=== PATIENT | male | born 1970 | race Caucasian/White ===

== ENCOUNTER 2021-12-18 19:21 | Emergency (ER) | payer BC ==
[~2021-12-18] VITALS: Ht 193 cm; Wt 108.8 kg
[~2021-12-18 19:21] MED LIST: SULF1TAB23 PO
--- NOTE | 2021-12-18 20:05 | Diagnostic Imaging Report ---
EXAM: FOOT, LEFT, 3 VIEWS INDICATION: Left foot trauma and pain. COMPARISON: None. FINDINGS: Hallux valgus. Moderate degenerative changes in the left 1st MTP joint. Comminuted mildly displaced fracture of the distal left 2nd phalangeal tuft. No other fractures. No radiopaque foreign bodies. IMPRESSION: Acute appearing fracture of the tuft of the left 2nd distal phalanx. Dictated by: Dictated on workstation # [id number]
[2021-12-18] MEDS ORDERED: CEPHALEXIN 250 MG (KEFLEX) CAP PO ONE (20:15)
[2021-12-18] MEDS ORDERED: BUPIVACAINE 0.25% 30 ML (SENSORCAINE) VIAL INJ ONE (20:15)
--- NOTE | 2021-12-18 20:17 | ED Lower Extremity ---
General Chief Complaint: Lower Extremity Stated Complaint: L FOOT SECOND TOE INJ Source: patient Exam Limitations: no limitations History of Present Illness Date Seen by Provider: Dec 18, 2021 Time Seen by Provider: 20:03 Initial Comments This is a well-appearing 51-year-old male who presented to the ER with complaints of smashed second toe on his left foot. States that he was lifting tires and attempted to throw onto the back of his truck when it messed and came back down and smashed his foot. Has a history of hammertoe on his second left foot and has been seeing Dr. Jackson with podiatry for discussion of possible amputation vs reconstruction. States he has follow-up with Dr. Jackson regarding this toe in 2 days. At this time he is resting comfortably and denies need for any additional pain management. No additional injuries reported. Allergies and Home Medications Allergies Coded Allergies: No Known Drug Allergies (Unverified Allergy, Mild, 11/25/08) Patient Home Medication List Home Medication List Reviewed: Yes Cephalexin (Cephalexin) 500 Mg Tablet, 500 MG PO TID Prescribed by: ANGELA YOUNG on 12/18/212039 Hydrocodone/Acetaminophen (Hydrocodone-Acetamin 5-325 mg) 5 Mg-325 Mg Tablet, 1 TAB PO Q4H PRN for PAIN-MODERATE (5-7) Prescribed by: ANGELA YOUNG on 12/18/212037 Sulfamethoxazole/Trimethoprim (Bactrim 400-80 Mg Tablet) 1 Tab Tablet, 1 TAB PO BID Prescribed by: EDEN MIKE on 11/25/08 174 Review of Systems Constitutional: no symptoms reported EENTM: no symptoms reported Respiratory: no symptoms reported Cardiovascular: no symptoms reported Physical Exam Vital Signs Vital Signs - First Documented 12/18/21 19:37 Temp 36.8 Pulse 91 Resp 18 B/P (MAP) 139/96 (110) Pulse Ox 96 O2 Delivery Room Air Capillary Refill : Height, Weight, BMI Height: '" Weight: lbs. oz. kg; BMI Method: General Appearance: WD/WN, no apparent distress HEENT: PERRL/EOMI, normal ENT inspection Neck: full range of motion, normal inspection Cardiovascular: regular rate, rhythm, no murmur Respiratory: lungs clear, normal breath sounds Knees: bilateral knee non-tender, bilateral knee normal inspection, bilateral knee normal range of motion Ankles: bilateral ankle non-tender, bilateral ankle normal inspection, bilateral ankle normal range of motion, bilateral ankle no evidence of injury Feet: right foot non-tender, right foot normal inspection, right foot normal range of motion, right foot no evidence of injury; left foot other ( Has significant swelling, bruising and ecchymosis at the distal portion of his left second toe. Has superficial abrasions with no lacerations. No cap refill at distal tip.) Neurologic/Tendon: normal sensation Neurologic/Psychiatric: no motor/sensory deficits, alert, normal mood/affect, oriented x 3 Skin: normal color, warm/dry Progress/Results/Core Measures Results/Orders My Orders Orders - ANGELA YOUNG APRN Foot, Left, 3 Views (12/18/21 19:41) Bupivacaine 0.25% 30 Ml Inj (Sensorcaine (12/18/21 20:15) Cephalexin Capsule (Keflex Capsule) (12/18/21 20:15) Bupivacaine 0.5% Injection (Sensorcaine (12/18/21 20:28) Hydrocodone/Apap 5/325 Tablet (Lortab 5 (12/18/21 20:45) Rx-Hydrocodone/Apap 5-325 Mg (Rx-Vicodin (12/18/21 20:45) Medications Given in ED Current Medications Medications Dose Ordered Sig/Padma Route Start Time Stop Time Status Last Admin Dose Admin Acetaminophen/ Hydrocodone Bitart 1 ea ONCE ONCE PO 12/18/21 20:45 12/18/21 20:46 DC 12/18/21 20:45 1 EA Acetaminophen/ Hydrocodone Bitart 1 ea Q4H PRN PO 12/18/21 20:45 12/18/21 21:26 DC 12/18/21 21:09 1 EA Bupivacaine HCl 30 ml ONCE ONCE INJ 12/18/21 20:15 12/18/21 20:16 DC 12/18/21 20:47 30 ML Cephalexin HCl 500 mg ONCE ONCE PO 12/18/21 20:15 12/18/21 20:16 DC 12/18/21 20:45 500 MG Vital Signs/I&O 12/18/21 19:37 Temp 36.8 Pulse 91 Resp 18 B/P (MAP) 139/96 (110) Pulse Ox 96 O2 Delivery Room Air Progress Progress Note : Progress Note Patient examined and he is in no acute distress. Reports only mild discomfort at this time. Images obtained reveal an acute fracture of the distal tuft portion of his left second toe. This is the hammer toe that he has been discussing with Dr. Jackson about possible amputation versus reconstruction. States he has has follow-up with him on for further discussion. However, I would like him to go ahead and reach out to Dr. Jackson's office tomorrow to see if he would like to see him sooner as he does have poor vascularization at the distal portion of his toe after his injury. Discussed that he will likely have to have amputation of this digit due to his traumatic injury. States he is okay with this as this is what he was leaning towards anyway. Went ahead cleansed site with Iodine swab and performed a digital block with 0.5% bupivacaine w/o epi, injected total of 2 cc. Achieved good anesthetization. Was able to cleanse his toe with saline and chlorhexidine wash comfortably. Applied bulky dressing. He will call Dr. Jackson first thing in the morning. Patient given Keflex and hydrocodone in the emergency department we will go ahead and prescribe outpatient antibiotics as well as some medication for pain management. Discharge plan of care reviewed with patient and he is agreeable with plan. Diagnostic Imaging Diagonstic Imaging: Xray Comments [facility], [place] NAME: RADHA LOPEZ [facility] REC#: [id number] PT STATUS: REG ER : 1970 PHYSICIAN: ANGELA YOUNG NIGHT STOCKER ADMIT DATE: 12/18/21/ER Signed Date of Exam:12/18/21 FOOT, LEFT, 3 VIEWS EXAM: FOOT, LEFT, 3 VIEWS INDICATION: Left foot trauma and pain. COMPARISON: None. FINDINGS: Hallux valgus. Moderate degenerative changes in the left 1st MTP joint. Comminuted mildly displaced fracture of the distal left 2nd phalangeal tuft. No other fractures. No radiopaque foreign bodies. IMPRESSION: Acute appearing fracture of the tuft of the left 2nd distal phalanx. Dictated by: Dictated on workstation # [id number] Dict: 12/18/212000 Trans: 12/18/212006 LINDEN [id number] Interpreted by: BENY MOONEY MD Electronically signed by: BENY MOONEY MD 12/18/212006 Departure Impression Primary Impression: DISP FX OF DISTAL PHALANX OF UNSP LESSER TOE(S), INIT Disposition: 01 HOME, SELF-CARE Condition: Improved Departure-Patient Inst. Decision time for Depature: 20:36 Referrals: NO,LOCAL PHYSICIAN (PCP/Family) Primary Care Physician Patient Instructions: Toe Fracture (DC) Add. Discharge Instructions: Plan: 1. Call Dr. Jackson first thing in the morning to see if he would like to reschedule your appointment from to tomorrow. 2. May take Hydrocodone 5/325mg by mouth every 4 hours as needed for pain. 3. Cephalexin 500mg by mouth three times a day, this is your antibiotic, take as directed and complete full course. 4. Return for any new, concerning, or worsening symptoms. All discharge instructions reviewed with patient and/or family. Voiced understanding. Scripts Cephalexin (Cephalexin) 500 Mg Tablet 500 MG PO TID, #15 TAB 0 Refills Prov: ANGELA YOUNG NIGHT STOCKER 12/18/21 Hydrocodone/Acetaminophen (Hydrocodone-Acetamin 5-325 mg) 5 Mg-325 Mg Tablet 1 TAB PO Q4H PRN for PAIN-MODERATE (5-7), #14 TAB 0 Refills Prov: ANGELA YOUNG NIGHT STOCKER 12/18/21 Copy Copies To 1: HARRIETT JACKSON M ANGELA YOUNG NIGHT STOCKER Dec 18, 2021 20:17
[2021-12-18] MEDS ORDERED: BUPIVACAINE 0.5% 30 ML (SENSORCAINE) VIAL ONE (20:28)
[2021-12-18] MEDS ORDERED: ACHD5005 PO (20:38)
[2021-12-18] MEDS ORDERED: CEPH500T PO (20:40)
[2021-12-18] MEDS ORDERED: HYDROcodone/APAP 5 MG/325 MG (LORTAB) TAB PO ONE (20:45)
[2021-12-18 21:21] VITALS: BP 138/86
== END 2021-12-18 21:26 | disposition home or self-care (01) ==
LOC: EDUNIT# 19:21 → ER 19:23
DX: S92.532A Displaced fracture of distal phalanx of left lesser toe(s), initial encounter for closed fracture (principal); W23.0XXA Caught, crushed, jammed, or pinched between moving objects, initial encounter
CPT/HCPCS: 73630

== ENCOUNTER 2021-12-21 05:33 | Outpatient (CLI) | payer BC ==
[~2021-12-21] VITALS: Ht 193 cm; Wt 109.0 kg
[~2021-12-21 05:33] MED LIST changes: +ACHD5005 PO; +CEPH500T PO
== END 2021-12-25 11:55 | disposition home or self-care (01) ==
LOC: PREOP 05:33
PROVIDERS: ATTEND Podiatrist Foot & Ankle Surgery
DX: Z01.818 Encounter for other preprocedural examination (principal)

== ENCOUNTER 2021-12-28 12:59 | Day surgery (SDC) | payer BC ==
[2021-12-28] VITALS (8 sets, daily range): BP systolic 126–147; BP diastolic 79–89
[~2021-12-28] VITALS: Ht 193 cm; Wt 109.0 kg
[2021-12-28] MEDS ORDERED: ceFAZolin INJECTION 1,000 MG ONE (13:48)
--- NOTE | 2021-12-28 13:48 | Physical Therapy Ortho Eval ---
PT Orthopedic Evaluation Type of Surgery left second toe amputation Prior Level of Function Current Living Status: Alone Locomotion (Upon Admit): Independent Established Durable Medical Eq: Standard Walker, Crutches Subjective Subjective Patient reports he has used crutches before and agrees to PT for preop education/evaluation Entry Into Home: Stairs With Railing Steps Into Home: 3 Other Obstacles: patient performed 3 steps SBA Motor Control Motor Control: Motor Control WNL ROM ROM: WFL, except focal deficit Strength Strength: WFL Transfer SCALE: Activities may be completed with or without assistive devices. 3-Eeajcuqgvt-cwzubva completes the activity by him/herself with no assistance from a helper. 5-Set-up or Clean-up Assistance-helper sets up or cleans up; patient completes activity. [place] assists only prior to or following the activity. 4-Supervision or Touching Assistance-helper provides verbal cues and/or touching/steadying and/or contact guard assistance as patient completes activity. Assistance may be provided throughout the activity or intermittently. 3-Partial/Moderate Assistance-helper does LESS THAN HALF the effort. [place] lifts, holds or supports trunk or limbs, but provides less than half the effort. 2-Substantial/Maximal Assistance-helper does MORE THAN HALF the effort. [place] lifts or holds trunk or limbs and provides more than half the effort. 1-Xbdrhdyig-vqbldt does ALL the effort. Patient does none of the effort to complete the activity. Or, the assistance of 2 or more helpers is required for the patient to complete the activity. If activity was not attempted, code reason: 7-Patient Refused. 9-Not Applicable-not attempted and the patient did not perform the activity before the current illness, exacerbation or injury. 10-Not Attempted due to Environmental Limitations-(lack of equipment, weather restraints, etc.). 88-Not Attempted due to Medical Conditions or Safety Concerns. Transfers (B, C, W/C) (QC): 6 Gait Gait Assistive Device: Crutches Weight Bearing Status RLE: Full Weight Bearing Left Lower Extremity: Left Weight Bearing Status LLE: Non Weight Bearing Gait (QC): 4 (SBA) Distance (QC): 3=150 ft Distance: 150' Gait Level of Assist: 4 Treatment Rendered Treatment: Gait Train, Step Train Assessment/Goals Goal Time Frame: 1 Visit Safe Ambulation: Yes Plan Treatment Plan: Discharge Treatment Duration: eval only PT/Family Agrees to Plan: Yes Time Time In: 1312 Time Out: 1325 Total Billed Treatment Time: 13 Billed Treatment Time 1 visit EVModC 13 min GINNY ALLEN PT Dec 28, 2021 13:48
[2021-12-28] MEDS ORDERED: LIDOCAINE 1% INJ 20 ML VIAL ONE (13:59)
[2021-12-28] MEDS ORDERED: BUPIVACAINE 0.5% 30 ML (SENSORCAINE) VIAL ONE (13:59)
[2021-12-28] MEDS ORDERED: ceFAZolin 2 GM IV Premixed 50 ML IV ONE (14:00)
[2021-12-28] MEDS ORDERED: LACTATED RINGERS 1,000 ML IV PRN (14:00)
[2021-12-28] MEDS ORDERED: MIDAZOLAM 2 MG/2 ML (VERSED) VIAL ONE (14:36)
[2021-12-28] MEDS ORDERED: fentaNYL INJ 100 MCG/2 ML AMP ONE (14:36)
[2021-12-28] MEDS ORDERED: proPOfol 200 MG/20 ML (DIPRIVAN) VIAL IV ONE (15:04)
[2021-12-28] MEDS ORDERED: ONDANSETRON 4 MG/2 ML (SDV) Z0FRAN ONE (15:04)
[2021-12-28] MEDS ORDERED: LIDOCAINE PF 2% 5 ML (XYLOCAINE) VIAL ONE (15:04)
--- NOTE | 2021-12-28 15:07 | Progress Note-Pre Operative ---
Pre-Operative Progress Note H&P Reviewed The H&P was reviewed, patient examined and no changes noted. Date Seen by Provider: Dec 28, 2021 Time Seen by Provider: 15:06 Date H&P Reviewed: Dec 28, 2021 Time H&P Reviewed: 15:06 Pre-Operative Diagnosis: Hammertoe, right 2nd HARRIETT MENDOZA DPM Dec 28, 2021 15:07
[2021-12-28] MEDS ORDERED: SEVOFLURANE (ULTANE) 15 ML INHAL SOLN ONE ×2 (15:37→15:38)
--- NOTE | 2021-12-28 15:55 | Progress Note-Post Operative ---
Post-Operative Progess Note Surgeon (s)/Manager Publishing (s) Surgeon HARRIETT MENDOZA DPM Manager Publishing: none Pre-Operative Diagnosis Hammertoe, right 2nd Post-Operative Diagnosis same, plus fracture Procedure & Operative Findings Date of Procedure 12/28/21 Procedure Performed/Findings amputation of the left 2nd toe Anesthesia Type General Estimated Blood Loss Estimated blood loss (mL): Minimal Specimens/Packing Specimens Removed left 2nd toe HARRIETT MENDOZA DPM Dec 28, 2021 15:55
[2021-12-28] MEDS ORDERED: LACTATED RINGERS 1,000 ML IV SCH (16:00)
[2021-12-28] MEDS ORDERED: HYDROcodone/APAP 5 MG/325 MG (LORTAB) TAB PO PRN (16:00)
[2021-12-28] MEDS ORDERED: ACHD5005 PO (16:13)
--- NOTE | 2021-12-28 16:14 | Anesthesia-General Post-Op ---
General Patient Condition Mental Status/LOC: Same as Preop Cardiovascular: Satisfactory Nausea/Vomiting: Absent Respiratory: Satisfactory Pain: Controlled Complications: Absent Post Op Complications Complications None Follow Up Care/Instructions Patient Instructions None needed. Anesthesia/Patient Condition Patient Condition Patient is doing well, no complaints, stable vital signs, no apparent adverse anesthesia problems. No complications reported per nursing. GIULIANA CHILD CRNA Dec 28, 2021 16:14
[2021-12-28] MEDS ORDERED: morphine INJ 10 MG/ML 1ML (SYR OR VIAL) IVP ONE (16:15)
[2021-12-28] MEDS ORDERED: ONDANSETRON 4 MG/2 ML (SDV) Z0FRAN IVP PRN (16:15)
--- NOTE | 2021-12-29 01:20 | OPERATIVE REPORT ---
DATE OF SERVICE: 12/28/2021 SURGEON: Edelmira Jackson DPM. PREOPERATIVE DIAGNOSES: 1. Hammer digit syndrome, left second digit. 2. Fracture of left second toe. POSTOPERATIVE DIAGNOSES: 1. Hammer digit syndrome, left second digit. 2. Fracture of left second toe. PROCEDURE: Amputation of left second toe. ANESTHESIA: General. HEMOSTASIS: Pneumatic ankle tourniquet at 250 mmHg. INDICATIONS: This 51-year-old male presents complaining of a painful left second toe. This is due to its deformity as well as a recent history of fracture to the digit. Conservative therapy is met with unsatisfactory results and the patient would like to get back to ambulation and his job as soon as possible. The patient opted to have an amputation of the toe as the treatment of choice for the patient. DESCRIPTION OF PROCEDURE: The patient was brought back to the operating table, placed in secure supine position. A general anesthetic was then induced. Pneumatic ankle tourniquet was placed on the left lower extremity over several layers of padding. Appropriate timeout was performed. Left foot was then prepped and draped in normal sterile manner. The left foot was then elevated, allowed to exsanguinate after which the tourniquet was inflated to 250 mmHg. Attention was then directed to the left second toe where a significant rigid contracture was noted as it overlapped to the hallux. There is also evidence of trauma to the distal aspect of the toe. No open wound was identified at this time. An incision was created from the dorsal aspect of the second metatarsophalangeal joint and extended medial and laterally to the proximal phalanx and then ended up in the same area to the inferior aspect of the left second metatarsophalangeal joint. The incision was deepened down to bone with great care to identify vascular structures, which were cauterized as encountered. The extensor and flexor tendons were cut as proximally as possible. Next, the digit was disarticulated sharply at the metatarsophalangeal joint. The digit was sent for gross and microscopic evaluation. The wound was flushed with copious amounts of normal saline. The tourniquet was released and active bleeders were then cauterized. Closure was then performed in layers. Deep closure and superficial closure was performed with 4-0 Vicryl, skin closure with 4-0 Prolene in a simple interrupted type stitch. Postoperative injection consisted of 10 mL of 0.5% Marcaine injected in a local infused into the surgical site. Postoperative dressing consisted of sterile 4 x 4s, sterile Kerlix all secured with a Coban wrap. The patient tolerated the anesthesia and procedure well, was transported from the operating room to the recovery area with vital signs stable and vascular status intact to all remaining digits of the left foot. The patient is to follow up in my office in 10 days' period of time or sooner if necessary. He is to keep the dressing dry, clean and intact and the foot elevated above heart level. Job ID: [id number] DocumentID: [id number] Dictated Date: 12/28/2021 16:03:12 Relief Manager Date: 12/29/2021 01:19:57 Dictated By: BULMARO RECIO
== END 2021-12-28 17:15 ==
LOC: SDC 12:59
PROVIDERS: ATTEND Podiatrist Foot & Ankle Surgery
DX: M20.42 Other hammer toe(s) (acquired), left foot (principal); S92.502A Displaced unspecified fracture of left lesser toe(s), initial encounter for closed fracture
CPT/HCPCS: 87081

== ENCOUNTER 2023-04-24 13:25 | Outpatient (CLI) | payer BC ==
[~2023-04-24] VITALS: Ht 193 cm; Wt 115.0 kg
[2023-04-24] MEDS ORDERED: IBUP-2473 PO (15:35)
== END 2023-04-24 16:04 | disposition home or self-care (01) ==
LOC: PREOP 13:25
PROVIDERS: ATTEND Podiatrist Foot & Ankle Surgery
DX: Z01.818 Encounter for other preprocedural examination (principal)

== ENCOUNTER 2023-05-02 11:08 | Day surgery (SDC) | payer BC ==
[~2023-05-02] VITALS: Ht 193 cm; Wt 115.0 kg
[2023-05-02] VITALS (11 sets, daily range): BP systolic 84–137; BP diastolic 51–89
[~2023-05-02 11:08] MED LIST changes: +IBUP-2473 PO
[2023-05-02] MEDS ORDERED: ceFAZolin INJECTION 2,000 MG in NS (IVPB) 50 ML 50 ML IV ONE (11:30)
[2023-05-02] MEDS ORDERED: LACTATED RINGERS 1,000 ML 1,000 ML IV PRN (11:45)
[2023-05-02] MEDS ORDERED: ceFAZolin INJECTION 1,000 MG in NS (IVPB) 50 ML 50 ML IV ONE (11:45)
[2023-05-02] MEDS ORDERED: LIDOCAINE 1% INJ 20 ML VIAL ONE (12:21)
[2023-05-02] MEDS ORDERED: BUPIVACAINE 0.5% 30 ML VIAL ONE (12:21)
[2023-05-02] MEDS ORDERED: LIDOCAINE PF 2% 5 ML VIAL ONE (12:59)
[2023-05-02] MEDS ORDERED: SEVOFLURANE (ULTANE) 15 ML INHAL SOLN ONE ×2 (12:59→13:47)
[2023-05-02] MEDS ORDERED: fentaNYL INJECTION 100 MCG/2 ML VIAL ONE (12:59)
[2023-05-02] MEDS ORDERED: proPOfol INJECTION 200 MG/20 ML VIAL IV ONE (12:59)
[2023-05-02] MEDS ORDERED: ONDANSETRON INJECTION 4 MG/2 ML (SDV) ONE (12:59)
[2023-05-02] MEDS ORDERED: MIDAZOLAM INJ 2 MG/2 ML VIAL ONE (12:59)
--- NOTE | 2023-05-02 13:01 | Progress Note-Pre Operative ---
Pre-Operative Progress Note Date of Available H&P: May 02, 2023 Date H&P Reviewed: May 02, 2023 Time H&P Reviewed: 13:00 Pre-Operative Diagnosis: Aliceertoe, right 2nd HARRIETT MENDOZA DPM May 02, 2023 13:01
--- NOTE | 2023-05-02 13:51 | Progress Note-Post Operative ---
Post-Operative Progess Note Surgeon (s)/Social Services Director (s) Surgeon HARRIETT MENDOZA DPM Social Services Director: none Pre-Operative Diagnosis Hammertoe, right 2nd Post-Operative Diagnosis Same Procedure & Operative Findings Date of Procedure 05/02/23 Procedure Performed/Findings Amputation of the right 2nd toe Anesthesia Type General Estimated Blood Loss Estimated blood loss (mL): minimal Specimens/Packing Specimens Removed Right 2nd digit Packing: none HARRIETT MENDOZA DPM May 02, 2023 13:51
--- NOTE | 2023-05-02 13:53 | Anesthesia-General Post-Op ---
General Patient Condition Mental Status/LOC: Same as Preop Cardiovascular: Satisfactory Nausea/Vomiting: Absent Respiratory: Satisfactory Pain: Controlled Complications: Absent Post Op Complications Complications None Follow Up Care/Instructions Patient Instructions None needed. Anesthesia/Patient Condition Patient Condition Patient is doing well, no complaints, stable vital signs, no apparent adverse anesthesia problems. No complications reported per nursing. ORLY MOTA CRNA May 02, 2023 13:53
[2023-05-02] MEDS ORDERED: ACHD5005 PO (13:54)
[2023-05-02] MEDS ORDERED: MEPERIDINE INJ 50 MG/ML VIAL IVP ONE (14:00)
[2023-05-02] MEDS ORDERED: LACTATED RINGERS 1,000 ML 1,000 ML IV SCH (14:00)
[2023-05-02] MEDS ORDERED: HYDROcodone/ACETAMINOPHEN 5 MG/325 MG TABLET PO PRN (14:00)
[2023-05-02] MEDS ORDERED: morphine INJ 10 MG/ML 1ML (SYR OR VIAL) IVP ONE (14:00)
[2023-05-02] MEDS ORDERED: fentaNYL INJECTION 100 MCG/2 ML VIAL IVP ONE (14:00)
--- NOTE | 2023-05-02 20:39 | OPERATIVE REPORT ---
DATE OF SERVICE: 05/02/2023 SURGEON: Edelmira Mendoza DPM. PREOPERATIVE DIAGNOSIS: Hammer digit syndrome, right second digit. POSTOPERATIVE DIAGNOSIS: Hammer digit syndrome, right second digit. PROCEDURE: Amputation of right second toe. WOUND CLASS: Clean. ANESTHESIA: General. HEMOSTASIS: Pneumatic thigh tourniquet at 250 mmHg. INDICATIONS: This 52-year-old male presents complaining of a painful right foot. The patient has a longstanding history of hallux valgus deformity and contracture of a painful right 2nd hammertoe. Conservative therapy has met with unsatisfactory results and the patient is agreeable to surgical intervention. He does not have a downtime for recovery of the hallux valgus and hammertoe correction. Therefore, he opted to have the amputation performed again after risks and complications were discussed at length. This will include the continued hallux valgus deformity and possible subluxation of even the right remaining lesser digits. DESCRIPTION OF PROCEDURE: The patient was brought back to the operating room table, placed in secure supine position. A general anesthetic was then induced. Appropriate timeout was performed. A local anesthetic was then induced utilizing 10 mL of 1:1 mixture of 1% Xylocaine, 0.5% Marcaine injected in a digital block to the second metatarsophalangeal joint area. The right foot was then prepped and draped in normal sterile manner. The right foot was then elevated, allowed to exsanguinate after which the thigh tourniquet was inflated to 250 mmHg. Attention was then directed to the right second toe where two curvilinear incisions were created, circumscribing the proximal phalanx of the right second toe. The incision was deepened down with cauterizing only necessary blood vessels as encountered. The incision was deepened down to the second metatarsophalangeal joint, where the medial and lateral collateral ligaments were released. The extensor tendon was also released as well as the flexor. This allowed for the disarticulation of the second toe, which was sent for gross and microscopic evaluation. The extensor and flexor tendons were identified and cut as proximally as possible. The wound was flushed with copious amounts of normal saline. No pathology was noted to the internal soft tissue at this time. Closure was then performed in layers. Deep closure was performed with 4-0 Vicryl, superficial, 4-0 Vicryl skin closure with 4-0 Prolene in a simple interrupted type stitch. Postoperative injection included 7 mL of 0.5% Marcaine injected in a local infusion to the surgical site. Postoperative dressing consisted of Betadine-soaked Adaptic, sterile 4 x 4, sterile Kerlix, all secured with a Coban wrap. The patient tolerated the anesthesia and procedure well and was transported from the operating room to the recovery area with vital signs stable and vascular status intact to all remaining digits of the right foot. The patient was given a prescription for hydrocodone. He is to be partial weightbearing with heel contact on the right lower extremity. We will see him back in the office in approximately 10 days' period of time or sooner, if necessary. Job ID: [id number] DocumentID: [id number] Dictated Date: 05/02/2023 14:00:40 Air Route Traffic Controller Date: 05/02/2023 20:37:00 Dictated By: EDELMIRA MENDOZA DPM
== END 2023-05-02 15:50 ==
LOC: SDC 11:08
PROVIDERS: ATTEND Podiatrist Foot & Ankle Surgery
DX: M20.41 Other hammer toe(s) (acquired), right foot (principal); E66.9 Obesity, unspecified; F17.210 Nicotine dependence, cigarettes, uncomplicated; Z68.30 Body mass index [BMI] 30.0-30.9, adult; Z28.310 Unvaccinated for COVID-19
CPT/HCPCS: 87081